=== PATIENT | male | born 1970 | race African-American/Black ===

== ENCOUNTER 2020-11-04 12:18 | Emergency (ER) | payer OTHER ==
[2020-11-04 12:26] VITALS: TEMP 98.1; BMI 20.7
[2020-11-04] MEDS ORDERED: ACETAMINOPHEN 1000 MG/100 ML VIAL (NON FORMULARY) IVPB ONE (13:26)
[2020-11-04] MEDS ORDERED: SODIUM CHLORIDE 1,000 ML IV STA ×2 (13:26→16:34)
[2020-11-04] MEDS ORDERED: ACETAMINOPHEN INJECTION 100 ML IVPB ONE (13:59)
[2020-11-04 14:25] LABS: BASO % 1.1 % (0-2.0); EOS % 1.6 % (0-4.5); HEMOGLOBIN 11.8 GM/dL (11.7-16.9); LYMPH % 29.2 % (8-40); MCH 28.6 pg (25.7-33.7); MCHC 34.8 g/dl (32.0-35.9); MEAN CELL VOLUME 82.2 fl (80-96); MEAN PLT VOLUME 8.3 fl (7.5-11.1); MONO % 13.8 % (3.8-10.2); NEUT % 54.3 % (42.8-82.8); PLATELET COUNT 291 K/MM3 (134-434); RBC 4.13 M/mm3 (4.00-5.60); RDW 14.1 % (11.9-15.9); RETICULOCYTES 2.43 % (0.5-1.5); WHITE BLOOD COUNT 5.6 K/mm3 (4.0-10.0)
[2020-11-04 14:31] LABS: INR 1.09 (0.83-1.09); PROTHROMBIN TIME (PATIENT) 13.1 SEC (9.7-13.0)
[2020-11-04 14:39] LABS: CHLORIDE 108 mmol/L (98-107); SODIUM 140 mmol/L (136-145)
[2020-11-04 14:41] LABS: CALCIUM 8.9 mg/dL (8.5-10.1)
[2020-11-04 14:42] LABS: ALBUMIN 4.1 g/dl (3.4-5.0); ANION GAP 6 MMOL/L (8-16); BLOOD UREA NITROGEN 13.4 mg/dL (7-18); CO2 26 mmol/L (21-32); GLUCOSE,RANDOM 85 mg/dL (74-106)
[2020-11-04 14:45] LABS: CREATININE 0.9 mg/dL (0.55-1.3); SGOT/AST 146 U/L (15-37); SGPT/ALT 123 U/L (13-61)
[2020-11-04 14:47] LABS: TOT PROT 7.1 g/dl (6.4-8.2)
[2020-11-04 14:48] LABS: ALK PHOS 65 U/L (45-117)
[2020-11-04 14:49] LABS: LDH 348 U/L (87-246)
[2020-11-04 16:53] LABS: PH,URINE 5.5 (5.0-8.0); URINE APPEARANCE CLEAR; URINE BILIRUBIN NEGATIVE (NEGATIVE); URINE COLOR YELLOW; URINE GLUCOSE (UA) NEGATIVE (NEGATIVE); URINE KETONE NEGATIVE (NEGATIVE); URINE LEUK ESTERASE NEGATIVE (NEGATIVE); URINE NITRITE NEGATIVE (NEGATIVE); URINE PROTEIN NEGATIVE (NEGATIVE); URINE UROBILINOGEN 0.2 mg/dL (0.2-1.0)
[2020-11-04 19:45] VITALS: BP 112/78; PULSE 86
== END 2020-11-04 19:45 | disposition home or self-care (01) ==
LOC: JER 12:18
PROC: 3E033NZ Introduction of Analgesics, Hypnotics, Sedatives into Peripheral Vein, Percutaneous Approach (ICD-10-PCS; principal; 2020-11-04)
PROC: 3E0337Z Introduction of Electrolytic and Water Balance Substance into Peripheral Vein, Percutaneous Approach (ICD-10-PCS; 2020-11-04)
DX: R74.8 Abnormal levels of other serum enzymes (principal); R10.9 Unspecified abdominal pain
CPT/HCPCS: 36415; 71046-TC-FY; 80053; 81003; 82550; 82553; 83615; 84484; 85025; 85045; 85610; 87086; 93005; 93010; 99285-25; C9803; J0131; U0003; U0005